=== PATIENT | male | born 2000 | race Caucasian/White ===

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

== ENCOUNTER → 2018-02-20 | Day surgery (SDC) | payer OTHER ==
[~2018-02-20] MED LIST changes: -CEFAZOLIN 2 GM/D5W RTU 2 GM/50 ML RTUPB IV PRN; -LACTATED RINGERS 1000 ML IV PRN; -LIDOCAINE 0.5% INJ-PF (5 MG/ML) 50 ML SDV SUBCUT PRN; +LIDOCAINE 1% INJ-PF (10 MG/ML) 30 ML SDV ONE
--- NOTE | 2018-02-20 18:00 | RADIOLOGY REPORT (SQ) ---
EXAM DESCRIPTION: ARTHRO SHOULDER INJECTION; FLUORO/NEEDLE PLACEMENT COMPLETED DATE/TIME: 02/20/2018 2:24 pm; 02/20/2018 2:25 pm REASON FOR STUDY: SUPERIOR GLENOID LABRUM LESION OF RIGHT SHOULDER (S43.431D) S43.431D SUPERIOR GLE NOID LABRUM LESION OF RIGHT SHOULDER, S RE-INJURY OF SHOULDER, 2 PRIOR LABRAL SURGERIES COMPARISON: MR ARTHROGRAM RIGHT SHOULDER 09/21/2016, 03/08/2016 FLUOROSCOPY TIME: 7 seconds 1 digital radiographic image saved to PACS. LIMITATIONS: None. PROCEDURE: Procedure, risks, benefits and alternatives explained to patient who then gave written co nsent. The posterior right shoulder was marked and a time out was called for correct procedure verifi cation. Posterior entry site marked using fluoroscopic guidance. Shoulder prepped and draped using sterile technique. Local anesthesia achieved using 6 mL of 1% lidocaine injection. 22 gauge spinal needle introduced into the joint space under direct fluoroscopic visualization. 0.5 mL of Isovue-300 contrast instilled to confirm intra-articular position. Dilute gadolinium 12 mL solution then inject ed. Needle removed and entry site covered with sterile bandage. No immediate complications noted. TECHNIQUE: Digital images acquired during fluoroscopy and stored on PACS. Patient immediately take n to the MR suite for additional imaging. INJECTION LOCATION: Right posterior glenohumeral joint CONTRAST TYPE AND AMOUNT: 0.5 mL of Isovue-300 was injected to confirm intra-articular needle placeme nt followed by 12 mL of dilute Prohance/Saline mixture. IMPRESSION: SUCCESSFUL NEEDLE PLACEMENT AND INJECTION FOR RIGHT SHOULDER MR ARTHROGRAM USING POSTERI OR APPROACH. COMMENT: Quality ID 145: Final reports for procedures using fluoroscopy that document radiation exp osure indices, or exposure time and number of fluorographic images (if radiation exposure indices are not available) TECHNICAL DOCUMENTATION: JOB ID: [id number] [employer]- All Rights Reserved Reading location - IP/workstation name: [email or web address]
--- NOTE | 2018-02-20 18:00 | RADIOLOGY REPORT (SQ) ---
EXAM DESCRIPTION: ARTHRO SHOULDER INJECTION; FLUORO/NEEDLE PLACEMENT COMPLETED DATE/TIME: 02/20/2018 2:24 pm; 02/20/2018 2:25 pm REASON FOR STUDY: SUPERIOR GLENOID LABRUM LESION OF RIGHT SHOULDER (S43.431D) S43.431D SUPERIOR GLE NOID LABRUM LESION OF RIGHT SHOULDER, S RE-INJURY OF SHOULDER, 2 PRIOR LABRAL SURGERIES COMPARISON: MR ARTHROGRAM RIGHT SHOULDER 09/21/2016, 03/08/2016 FLUOROSCOPY TIME: 7 seconds 1 digital radiographic image saved to PACS. LIMITATIONS: None. PROCEDURE: Procedure, risks, benefits and alternatives explained to patient who then gave written co nsent. The posterior right shoulder was marked and a time out was called for correct procedure verifi cation. Posterior entry site marked using fluoroscopic guidance. Shoulder prepped and draped using sterile technique. Local anesthesia achieved using 6 mL of 1% lidocaine injection. 22 gauge spinal needle introduced into the joint space under direct fluoroscopic visualization. 0.5 mL of Isovue-300 contrast instilled to confirm intra-articular position. Dilute gadolinium 12 mL solution then inject ed. Needle removed and entry site covered with sterile bandage. No immediate complications noted. TECHNIQUE: Digital images acquired during fluoroscopy and stored on PACS. Patient immediately take n to the MR suite for additional imaging. INJECTION LOCATION: Right posterior glenohumeral joint CONTRAST TYPE AND AMOUNT: 0.5 mL of Isovue-300 was injected to confirm intra-articular needle placeme nt followed by 12 mL of dilute Prohance/Saline mixture. IMPRESSION: SUCCESSFUL NEEDLE PLACEMENT AND INJECTION FOR RIGHT SHOULDER MR ARTHROGRAM USING POSTERI OR APPROACH. COMMENT: Quality ID 145: Final reports for procedures using fluoroscopy that document radiation exp osure indices, or exposure time and number of fluorographic images (if radiation exposure indices are not available) TECHNICAL DOCUMENTATION: JOB ID: [id number] 1870 [employer]- All Rights Reserved Reading location - IP/workstation name: [email or web address]
--- NOTE | 2018-02-21 07:23 | RADIOLOGY REPORT (SQ) ---
EXAM DESCRIPTION: MRI RT UPPER JOINT WITH COMPLETED DATE/TIME: 02/20/2018 2:58 pm REASON FOR STUDY: SUPERIOR GLENOID LABRUM LESION OF RIGHT SHOULDER (S43.431D) S43.431D SUPERIOR GLE NOID LABRUM LESION OF RIGHT SHOULDER, S COMPARISON: 09/21/2016. TECHNIQUE: Right shoulder images acquired and stored on PACS. Oblique coronal, oblique sagittal, and axial imaging to include fat sensitive sequences as T1, water sensitive sequences as FST2/STIR, and contrast sensitive sequences as FST1. LIMITATIONS: None. FINDINGS: JOINT DISTENTION: Adequate. BONE MARROW AND CORTEX: Normal. AC JOINT: Intact without abnormal widening or significant overgrowth. Type 2 acromion without subacr omial compromise. GLENOHUMERAL JOINT: No subluxation or dislocation. Subchondral changes are presumably postoperative, related to previous labral repair. ROTATOR CUFF: Normal thickness and signal. No evidence of tear or atrophy. LABRUM AND BICEPS LABRAL COMPLEX: Scratch the recurrent tear is likely, irregular contrast undercutti ng the biceps anchor. Biceps tendon normal. Relatively macerated torn appearance of the posterior l abrum. INFERIOR LABRAL COMPLEX: Posterior tear appears to extend into the inferior labrum. ADJACENT SOFT TISSUES: No regional mass or axillary adenopathy. OTHER: No other significant finding. IMPRESSION: 1. Findings consistent with recurrent labral tears. This includes superior, posterior a nd inferior lesions. Biceps tendon intact. 2. Cuff intact. TECHNICAL DOCUMENTATION: JOB ID: [id number] [employer]- All Rights Reserved Reading location - IP/workstation name: [email or web address]
== END ==
LOC: RAD 13:33
PROVIDERS: ATTEND Orthopaedic Surgery
DX: S43.431D Superior glenoid labrum lesion of right shoulder, subsequent encounter (principal); X58.XXXD Exposure to other specified factors, subsequent encounter
CPT/HCPCS: 73222; 77002; 23350; A9576; J3490

== ENCOUNTER → 2019-07-09 | Outpatient (CLI) | payer OTHER ==
[2019-07-09 13:02] LABS: ABSOLUTE EOSINOPHILS # (AUTO) 0.1 10^3/uL (0.0-0.6); ABSOLUTE LYMPHOCYTES (AUTO) 1.7 10^3/uL (0.5-4.7); ABSOLUTE MONOCYTES (AUTO) 0.4 10^3/uL (0.1-1.4); ABSOLUTE NEUT (AUTO) 3.8 10^3/uL (1.7-8.2); BASOPHILS % (AUTO) 0.8 % (0-2); EOSINOPHILS % (AUTO) 0.9 % (0-6); HEMATOCRIT 46.2 % (37.9-51.0); HEMOGLOBIN 15.8 g/dL (13.5-17.0); MEAN CORPUSCULAR HEMOGLOBIN 27.8 pg (27.0-33.4); MEAN CORPUSCULAR HGB CONC 34.2 g/dL (32.0-36.0); MEAN CORPUSCULAR VOLUME 81 fl (80-97); MONOCYTES % (AUTO) 6.4 % (3-13); PLATELET COUNT 211 10^3/uL (150-450); RED BLOOD COUNT 5.69 10^6/uL (4.35-5.55); RED CELL DISTRIBUTION WIDTH 13.2 % (11.5-14.0); SEGMENTED NEUTROPHILS % (AUTO) 63.9 % (42-78); TOTAL CELLS COUNTED % (AUTO) 100 %
[2019-07-09 13:32] LABS: ALBUMIN 4.7 g/dL (3.5-5.0); ALKALINE PHOSPHATASE 80 U/L (38-126); ANION GAP 11 (5-19); ASPARTATE AMINO TRANSFERASE 33 U/L (17-59); BILIRUBIN,DIRECT 0.2 mg/dL (0.0-0.4); BILIRUBIN,TOTAL 0.6 mg/dL (0.2-1.3); BLOOD UREA NITROGEN 18 mg/dL (7-20); C-REACTIVE PROTEIN 5.7 mg/L (<10.0); CALCIUM 9.7 mg/dL (8.4-10.2); CARBON DIOXIDE 28 mmol/L (22-30); CHLORIDE 101 mmol/L (98-107); GLUCOSE 86 mg/dL (75-110); POTASSIUM 4.3 mmol/L (3.6-5.0); TOTAL PROTEIN 7.3 g/dL (6.3-8.2)
[2019-07-09 13:39] LABS: ERYTHROCYTE SEDIMENTATION RATE 8 mm/hr (0-15)
== END ==
LOC: OD 12:31
PROVIDERS: ATTEND Nurse Practitioner Family
DX: M25.50 Pain in unspecified joint (principal); R51 Headache
CPT/HCPCS: 36415; 80053; 85025; 85652; 86038; 86140; 86308

== ENCOUNTER 2019-09-19 19:01 | Emergency (ER) | payer OTHER ==
[2019-09-19] MEDS ORDERED: IBUPROFEN 800 MG TABLET PO ONE (20:28)
--- NOTE | 2019-09-19 20:31 | ER Document Report ---
HPI - HPI Patient complains to provider of: right shoulder pain Time Seen by Provider: 09/19/19 20:23 Pain Level: 4 Context: Patient is a 18-year-old male presents to the emergency department for right shoulder pain. Patient voices he slipped on water. Fell on outstretched right hand. States that he fell onto his right shoulder. Patient voices pain in the anterior lateral aspect of the right shoulder. States he does currently have a torn labrum. States he does see orthopedics currently but is unsure of the name. Patient voices no pain in his right wrist, right elbow. Patient's denying any his head, neck, back. Denies any loss of consciousness or vomiting. Past Medical History - General Information source: Patient, Parent - Social History Smoking Status: Never Smoker Family History: Reviewed & Not Pertinent Patient has suicidal ideation: No Patient has homicidal ideation: No - Past Medical History Cardiac Medical History: Denies: Hx Coronary Artery Disease, Hx Heart Attack, Hx Hypertension Pulmonary Medical History: Denies: Hx Asthma, Hx Bronchitis, Hx COPD, Hx Pneumonia Neurological Medical History: Denies: Hx Cerebrovascular Accident, Hx Seizures Renal/ Medical History: Denies: Hx Peritoneal Dialysis Musculoskeletal Medical History: Denies Hx Arthritis, Reports Hx Musculoskeletal Trauma Psychiatric Medical History: Reports: Hx Attention Deficit Hyperactivity Disorder, Hx Bipolar Disorder - atypical autism Past Surgical History: Reports: Hx Orthopedic Surgery - shoulder x2, Hx Vascular Surgery - ear tubs - Immunizations Immunizations up to date: Yes Hx Diphtheria, Pertussis, Tetanus Vaccination: Yes Vertical Provider Document - CONSTITUTIONAL Agree With Documented VS: Yes Notes: GENERAL: Alert, interacts well. No acute distress. HEAD: Normocephalic, atraumatic. EYES: Pupils equal, round, and reactive to light. Extraocular movements intact. ENT: Oral mucosa moist, tongue midline. NECK: Full range of motion. Supple. Trachea midline. LUNGS: Clear to auscultation bilaterally, no wheezes, rales, or rhonchi. No respiratory distress. HEART: Regular rate and rhythm. No murmur ABDOMEN: Soft, non-tender. Non-distended. Bowel sounds present in all 4 quadrants. EXTREMITIES: Moves all 4 extremities spontaneously. normal radial and dorsalis pedis pulses bilaterally. No cyanosis. Full range of motion right wrist, right elbow. Decreased range of motion secondary to pain right shoulder. Radial, ulnar, median nerves intact right upper extremity. BACK: no cervical, thoracic, lumbar midline tenderness. No saddle anesthesia, normal distal neurovascular exam. NEUROLOGICAL: Alert and oriented x3. Normal speech. cranial nerves II through XII grossly intact. PSYCH: Normal affect, normal mood. SKIN: Warm, dry, normal turgor. No rashes or lesions noted. - INFECTION CONTROL TRAVEL OUTSIDE OF THE [place] IN LAST 30 DAYS: No Course - Re-evaluation Re-evalutation: 09/19/19 21:52 Shoulder X-Ray 09/19/19 20:28 IMPRESSION: Small lucency in the superior aspect of the glenoid. Please correlate clinically. copyright 2010 [employer]- All Rights Reserved Based on patient's history of labrum tears it is on sure if this is a new or old injury. Based on patient's recent trauma we will use a shoulder immobilizer and have him follow-up with orthopedics. Patient and family voiced that they do typically follow-up with Dr. Terrell. Discussed close follow-up with orthopedics, primary care provider and close return precautions. Patient stable for discharge. - Vital Signs Vital signs: Temp Pulse Resp BP Pulse Ox 98.1 F 79 20 126/63 H 97 09/19/19 19:04 09/19/19 19:04 09/19/19 19:04 09/19/19 19:04 09/19/19 19:04 Discharge - Discharge Clinical Impression: Glenoid fracture of shoulder Qualifiers: Encounter type: initial encounter Fracture type: closed Laterality: right Qualified Code(s): S42.141A - Displaced fracture of glenoid cavity of scapula, right shoulder, initial encounter for closed fracture; S42.151A - Displaced fracture of neck of scapula, right shoulder, initial encounter for closed fracture Condition: Stable Disposition: HOME, SELF-CARE Additional Instructions: As we discussed your son has been seen and treated in the emergency department for a potential fracture in his right shoulder. It is unsure if this is a new injury or potential inflammation of an old injury. Please use the shoulder immobilizer until you follow-up with orthopedics. Please also use [id number] Tylenol or Motrin for generalized discomfort. Please return to the emergency department for any concerns. Referrals: VIGNESH BETANCUR FNP-C [NURSE PRACTITIONER] - Follow up as needed DEE TERRELL, [ACTIVE STAFF] - Follow up as needed
--- NOTE | 2019-09-19 21:31 | RADIOLOGY REPORT (SQ) ---
EXAM DESCRIPTION: XR SHOULDER 2 OR MORE VIEWS COMPLETED DATE/TME: 09/19/2019 20:28 CLINICAL HISTORY: 18 years, Male, pain COMPARISON: None. NUMBER OF VIEWS: TECHNIQUE: LIMITATIONS: None. FINDINGS: 3 views of the right shoulder were obtained. There is a 7 mm area of lucency in the superior aspect of the glenoid, of unknown etiology. No fracture or dislocation. The acromioclavicular joint appears intact. IMPRESSION: Small lucency in the superior aspect of the glenoid. Please correlate clinically. copyright 2010 [employer]- All Rights Reserved
[2019-09-19 22:07] VITALS: BP 117/63
== END 2019-09-19 22:09 | disposition home or self-care (01) ==
LOC: ER 19:01
DX: S42.141A Displaced fracture of glenoid cavity of scapula, right shoulder, initial encounter for closed fracture (principal); S42.151A Displaced fracture of neck of scapula, right shoulder, initial encounter for closed fracture; X58.XXXA Exposure to other specified factors, initial encounter
CPT/HCPCS: 99283; 73030; L3650

== ENCOUNTER → 2019-10-31 | Day surgery (SDC) | payer OTHER ==
--- NOTE | 2019-10-31 16:00 | RADIOLOGY REPORT (SQ) ---
EXAM DESCRIPTION: MRI RT UPPER JOINT WITH COMPLETED DATE/TIME: 10/31/2019 1:46 pm REASON FOR STUDY: SUPERIOR GLENOID LABRUM LESION OF RIGHT HSOULDER (S43.431D) S43.431D SUPERIOR GLE NOID LABRUM LESION OF RIGHT SHOULDER, S COMPARISON: 03/08/2016, 09/21/2016, 02/20/2018. TECHNIQUE: Right shoulder images acquired and stored on PACS. Oblique coronal, oblique sagittal, and axial imaging to include fat sensitive sequences as T1, water sensitive sequences as FST2/STIR, and contrast sensitive sequences as FST1. LIMITATIONS: Motion are not FINDINGS: JOINT DISTENTION: Adequate distention for interpretation. BONE MARROW AND CORTEX: Normal. No significant osteophytes. No edema or defects. AC JOINT: Type II acromion. No significant AC joint arthropathy. GLENOHUMERAL JOINT: Intact. ROTATOR CUFF: Intact without significant tendinopathy, partial or full-thickness tears. No peritendin itis. LABRUM AND BICEPS LABRAL COMPLEX: Multiple suture anchors in the glenoid. There is increased signal in the labrum with relative sparing of the anterior inferior margin. This is unchanged. Biceps is i ntact. INFERIOR LABRAL COMPLEX: See above. No paralabral cyst. ADJACENT SOFT TISSUES: No masses or nodes. OTHER: No other significant finding. IMPRESSION: Persistent abnormal signal in the labrum with relative sparing of the anterior inferior labrum status post extensive labral repair. Intact biceps and rotator cuff. TECHNICAL DOCUMENTATION: JOB ID: [id number] [employer]- All Rights Reserved Reading location - IP/workstation name: [email or web address]
--- NOTE | 2019-10-31 17:23 | RADIOLOGY REPORT (SQ) ---
EXAM DESCRIPTION: ARTHRO SHOULDER INJECTION; FLUORO/NEEDLE PLACEMENT COMPLETED DATE/TIME: 10/31/2019 1:37 pm REASON FOR STUDY: SUPERIOR GLENOID LABRUM LESION OF RIGHT HSOULDER (S43.431D) S43.431D SUPERIOR GLE NOID LABRUM LESION OF RIGHT SHOULDER, S COMPARISON: None. FLUOROSCOPY TIME: 0.1 minutes 1 images saved to PACS. LIMITATIONS: None. PROCEDURE: Procedure, risks, benefits and alternatives explained to patient who then gave written co nsent. The right shoulder was marked and a time out was called for correct procedure verification. P osterior entry site marked using fluoroscopic guidance. Shoulder prepped and draped using sterile te chnique. Local anesthesia achieved using 1% lidocaine injection. Hypodermic needle introduced into the joint space under direct fluoroscopic visualization. Non-ionic contrast instilled to confirm intr a-articular position. Dilute gadolinium solution then injected. Needle removed and entry site covere d with sterile bandage. No immediate complications noted. TECHNIQUE: Digital images acquired during fluoroscopy and stored on PACS. Patient immediately take n to the MR suite for additional imaging. INJECTION LOCATION: Right posterior shoulder CONTRAST TYPE AND AMOUNT: 1 mL Omnipaque, 10 mL dilute gadolinium. IMPRESSION: SUCCESSFUL NEEDLE PLACEMENT AND INJECTION FOR RIGHT SHOULDER MR ARTHROGRAM USING POSTERI OR APPROACH. COMMENT: None Quality ID 145: Final reports for procedures using fluoroscopy that document radiation exposure gabriel shiraz, or exposure time and number of fluorographic images (if radiation exposure indices are not avail able) TECHNICAL DOCUMENTATION: JOB ID: [id number] [employer]- All Rights Reserved Reading location - IP/workstation name: [email or web address] [id number]
--- NOTE | 2019-10-31 17:23 | RADIOLOGY REPORT (SQ) ---
EXAM DESCRIPTION: ARTHRO SHOULDER INJECTION; FLUORO/NEEDLE PLACEMENT COMPLETED DATE/TIME: 10/31/2019 1:37 pm REASON FOR STUDY: SUPERIOR GLENOID LABRUM LESION OF RIGHT HSOULDER (S43.431D) S43.431D SUPERIOR GLE NOID LABRUM LESION OF RIGHT SHOULDER, S COMPARISON: None. FLUOROSCOPY TIME: 0.1 minutes 1 images saved to PACS. LIMITATIONS: None. PROCEDURE: Procedure, risks, benefits and alternatives explained to patient who then gave written co nsent. The right shoulder was marked and a time out was called for correct procedure verification. P osterior entry site marked using fluoroscopic guidance. Shoulder prepped and draped using sterile te chnique. Local anesthesia achieved using 1% lidocaine injection. Hypodermic needle introduced into the joint space under direct fluoroscopic visualization. Non-ionic contrast instilled to confirm intr a-articular position. Dilute gadolinium solution then injected. Needle removed and entry site covere d with sterile bandage. No immediate complications noted. TECHNIQUE: Digital images acquired during fluoroscopy and stored on PACS. Patient immediately take n to the MR suite for additional imaging. INJECTION LOCATION: Right posterior shoulder CONTRAST TYPE AND AMOUNT: 1 mL Omnipaque, 10 mL dilute gadolinium. IMPRESSION: SUCCESSFUL NEEDLE PLACEMENT AND INJECTION FOR RIGHT SHOULDER MR ARTHROGRAM USING POSTERI OR APPROACH. COMMENT: None Quality ID 145: Final reports for procedures using fluoroscopy that document radiation exposure gabriel shiraz, or exposure time and number of fluorographic images (if radiation exposure indices are not avail able) TECHNICAL DOCUMENTATION: JOB ID: [id number] [employer]- All Rights Reserved Reading location - IP/workstation name: [email or web address] [id number]
== END ==
LOC: RAD 12:08
PROVIDERS: ATTEND Orthopaedic Surgery
DX: S43.431D Superior glenoid labrum lesion of right shoulder, subsequent encounter (principal); X58.XXXD Exposure to other specified factors, subsequent encounter
CPT/HCPCS: 73222; 77002; 23350; A9576